=== PATIENT | male | born 1960 | race Caucasian/White ===

== ENCOUNTER → 2018-09-09 11:06 | Outpatient (CLI) | payer MEDICARE, MEDICAID, SELFPAY ==
--- NOTE | 2018-09-09 | DI.RAD.S_ITS ---
PROCEDURE: XR THORACIC SPINE 3V INDICATIONS: THORACIC PAIN TECHNIQUE: 3 views of the thoracic spine were acquired. COMPARISON: None. FINDINGS: Bones: No fractures or dislocations. No suspicious bony lesions. Spinal electrodes are noted. Diffuse endplate spurring and sclerosis. Mild diffuse narrowing of the thoracic spine disc spaces. Soft tissues: No paravertebral stripe thickening. IMPRESSION: Diffuse thoracic disc degeneration. No fracture Dictated by: Rigo Walker M.D. on 09/09/2018 at 12:31 Approved by: Rigo Walker M.D. on 09/09/2018 at 12:32
== END ==
PROVIDERS: Visit Provider Anesthesiology Pain Medicine
DX: M51.34 Other intervertebral disc degeneration, thoracic region (principal)
CPT/HCPCS: 72072